=== PATIENT | female | born 2000 | race American Indian/Alaskan Native ===

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

== ENCOUNTER 2018-09-07 20:14 | Emergency (ER) | payer BC ==
[2018-09-07 20:28] VITALS: O2SAT 99
[2018-09-07] MEDS ORDERED: Sodium Chloride 0.9% 1,000 ML IV ONE (20:49)
[2018-09-07 20:55] LABS: BASO % 0.2 % (0.0-2.0); EOS % 0.3 % (0.0-4.0); HEMOGLOBIN 12.8 g/dL (11.0-16.0); MEAN CORPUSCULAR HEMOGLOBIN 28.6 pg (27.0-31.0); MEAN CORPUSCULAR HGB CONC 33.2 g/dL (33.0-37.0); MEAN PLATELET VOLUME 10.8 fL (7.2-11.7); MONO # 0.6 K/uL (0.0-0.8); MONO % 8.4 % (0.0-10.0); NEUT # 5.8 K/uL (1.8-7.0); NEUT % 78.1 % (50.0-75.0); RBC 4.48 Mil/uL (3.80-5.20); WHITE BLOOD COUNT 7.4 K/uL (4.8-10.8)
[2018-09-07 21:09] LABS: ALB/GLOB RATIO 1.5 (1.0-2.1); ALBUMIN 4.5 g/dL (3.5-5.0); ALT/SGPT 11 U/L (9-52); AST/SGOT 24 U/L (14-36); BLOOD UREA NITROGEN 13 mg/dL (7-17); CALCIUM 9.2 mg/dl (8.6-10.4); GFR NON-AFRICAN AMERICAN > 60
[2018-09-07 21:16] LABS: SQUAMOUS EPITHIAL 1 /hpf (0-5); URINE BACTERIA RARE (<OCC); URINE BILIRUBIN NEGATIVE (NEGATIVE); URINE BLOOD NEGATIVE (NEGATIVE); URINE CLARITY Clear (Clear); URINE COLOR Yellow (YELLOW); URINE GLUCOSE (UA) NORMAL (Normal); URINE LEUKOCYTE ESTERASE NEG Leu/uL (Negative); URINE PROTEIN NEGATIVE (NEGATIVE)
[2018-09-07] MEDS ORDERED: Iodixanol 320 MG/ML 100 ML BOTTLE IV ONE (21:30)
[2018-09-07 23:31] VITALS: BP 101/71; PULSE 88; RESP 16; TEMP 97.6
--- NOTE | 2018-09-08 04:40 | C.PDOC ---
History Of Present Illness 18-year-old female presents to the ED for evaluation of abdominal pain and watery, non-bloody diarrhea for two days. Patient reports having an episode of vomiting once earlier today, but has been able to tolerate liquid PO intake. Richar domínguez denies fever, chills. Time Seen by Provider: 09/07/18 20:33 Chief Complaint (Nursing): Abdominal Pain History Per: Patient History/Exam Limitations: no limitations Onset/Duration Of Symptoms: Days (2) Current Symptoms Are (Timing): Still Present Location Of Pain/Discomfort: Diffuse Quality Of Discomfort: "Pain" Associated Symptoms: Nausea, Vomiting, Diarrhea. denies: Fever, Chills Additional History Per: Patient Abnormal Vaginal Bleeding: No Past Medical History Reviewed: Historical Data, Nursing Documentation, Vital Signs Vital Signs: Last Vital Signs Temp 97.6 F 09/07/18 23:29 Pulse 88 09/07/18 23:29 Resp 16 09/07/18 23:29 BP 101/71 09/07/18 23:29 Pulse Ox 99 09/07/18 23:29 - Medical History PMH: Anemia Surgical History: No Surg Hx Family History: States: Unknown Family Hx - Social History Hx Alcohol Use: No Hx Substance Use: Yes Review Of Systems Constitutional: Negative for: Fever, Chills Gastrointestinal: Positive for: Nausea, Vomiting, Abdominal Pain, Diarrhea Physical Exam - Physical Exam Appears: Non-toxic, No Acute Distress Skin: Normal Color, Warm, Dry Head: Atraumatic, Normacephalic Eye(s): bilateral: Normal Inspection Oral Mucosa: Moist Neck: Supple Chest: Symmetrical, No Deformity, No Tenderness Cardiovascular: Rhythm Regular, No Murmur Respiratory: Normal Breath Sounds, No Rales, No Rhonchi, No Wheezing Gastrointestinal/Abdominal: Soft, Tenderness (mild, diffuse ), No Guarding, No Rebound Extremity: Normal ROM, Capillary Refill (less than 2 seconds ) Neurological/Psych: Oriented x3, Normal Speech, Normal Cognition ED Course And Treatment - Laboratory Results Result Diagrams: 09/07/18 20:46 09/07/18 20:46 Lab Results: Total Bilirubin 0.5 mg/dL (0.2-1.3) 09/07/18 20:46 AST 24 U/L (14-36) 09/07/18 20:46 ALT 11 U/L (9-52) 09/07/18 20:46 Alkaline Phosphatase 43 U/L (38-126) 09/07/18 20:46 Total Protein 7.4 g/dL (6.3-8.3) 09/07/18 20:46 Albumin 4.5 g/dL (3.5-5.0) 09/07/18 20:46 Globulin 2.9 gm/dL (2.2-3.9) 09/07/18 20:46 Albumin/Globulin Ratio 1.5 (1.0-2.1) 09/07/18 20:46 Urine Color Yellow (YELLOW) 09/07/18 20:46 Urine Clarity Clear (Clear) 09/07/18 20:46 Urine pH 5.0 (5.0-8.0) 09/07/18 20:46 Ur Specific Adin 1.027 (1.003-1.030) 09/07/18 20:46 Urine Protein Negative mg/dL (NEGATIVE) 09/07/18 20:46 Urine Glucose (UA) Normal mg/dL (Normal) 09/07/18 20:46 Urine Ketones Trace mg/dL (NEGATIVE) 09/07/18 20:46 Urine Blood Negative (NEGATIVE) 09/07/18 20:46 Urine Nitrate Negative (NEGATIVE) 09/07/18 20:46 Urine Bilirubin Negative (NEGATIVE) 09/07/18 20:46 Urine Urobilinogen 2.0 mg/dL (0.2-1.0) H 09/07/18 20:46 Ur Leukocyte Esterase Neg Mia/uL (Negative) 09/07/18 20:46 Urine WBC (Auto) 1 /hpf (0-5) 09/07/18 20:46 Urine RBC (Auto) < 1 /hpf (0-3) 09/07/18 20:46 Ur Squamous Epith Cells 1 /hpf (0-5) 09/07/18 20:46 Urine Bacteria Rare (<OCC) 09/07/18 20:46 O2 Sat by Pulse Oximetry: 99 (on RA ) Pulse Ox Interpretation: Normal - CT Scan/US CT A/P Other Rad Studies (CT/US): Read By Radiologist, Radiology Report Reviewed CT/US Interpretation: EXAM: CT Abdomen and Pelvis with IV contrast. CLINICAL HISTORY: RLQ tenderness. TECHNIQUE: Axial computed tomography images of the abdomen and pelvis with intravenous contrast. 0.00 mGy-cm. CONTRAST: With; VISI 320 100MLS. COMPARISON: None provided. FINDINGS: LUNG BASES: The lung bases appear clear. No pleural effusions are seen. LIVER: Unremarkable. GALLBLADDER AND BILE DUCTS: The gallbladder appears within normal limits. No radioopaque gallstones are seen. No biliary ductal dilatation is evident. PANCREAS: Unremarkable. SPLEEN: Unremarkable. ADRENAL GLANDS: Unremarkable. KIDNEYS, URETERS, AND BLADDER: The kidneys appear within normal limits. There is no hydronephrosis or hydroureter. No urinary calculi are seen. The urinary bladder appeared normal in size and configuration. STOMACH AND BOWEL: Unremarkable appearance of the stomach. No evidence of bowel obstruction. Mild mucosal wall thickening and fluid in the lumen are seen in the duodenum and throughout the small intestinal tract thought compatible with diffuse enteritis. Infectious or inflammatory etiologies are thought most likely. No evidence suggesting colitis. There is liquid stool identified in the ascending colon compatible with some diarrhea. APPENDIX: No evidence of acute appendicitis on CT examination. PERITONEUM: No free fluid. No free air. LYMPH NODES: No lymphadenopathy is evident. REPRODUCTIVE: Unremarkable as visualized. VASCULA TURE: No evidence of abdominal aortic aneurysm. BONES: No aggressive appearing osseous lesion. No acute osseous pathology evident. IMPRESSION: 1. Evidence of diffuse enteritis. 2. Liquid stool in the ascending colon compatible with diarrhea. Medical Decision Making Medical Decision Making: Progress: Bloodwork, urinalysis, and CT A/P ordered and reviewed. Zofran IVP and IV Fluids given. On reassessment, patient is resting comfortably, showing no signs of distress and reports an improvement in her symptoms. Patient is stable for discharge and is advised to f/u with her PMD within 1-2 days for further evaluation. Disposition - Disposition Referrals: [facility] [Outside] [facility] [Outside] Disposition: HOME/ ROUTINE Disposition Time: 23:30 Condition: IMPROVED Additional Instructions: ALFA CAMEJO, thank you for letting us take care of you today. The emergency medical care you received today was directed at your acute symptoms. If you were prescribed any medication, please fill it and take as directed. It may take several days for your symptoms to resolve. Return to the Emergency Department if your symptoms worsen, do not improve, or if you have any other problems. Please contact your doctor or call one of the physicians/clinics you have been referred to that are listed on the Patient Visit Information form that is included in your discharge packet. Bring any paperwork you were given at discharge with you along with any medications you are taking to your follow up visit. Our treatment cannot replace ongoing medical care by a primary care provider outside of the emergency department. Thank you for allowing the [facility] team to be part of your care today. Drink plenty of fluids to maintain your hydration. Follow up with our clinic or your primary care doctor this week for re- evaluation and further management. Prescriptions: Famotidine [Pepcid] 20 mg PO DAILY #10 tab Ondansetron ODT [Zofran ODT] 4 mg PO Q8 PRN #15 odt PRN Reason: Nausea/Vomiting Instructions: Diarrhea in Adolescents and Adults Forms: [facility] (Japanese), School Excuse, Work Excuse - Clinical Impression Clinical Impression: Enteritis - Scribe Statement The provider has reviewed the documentation as recorded by the Scribe (Chelsie Hill) Provider Attestation: All medical record entries made by the Scribe were at my direction and personall y dictated by me. I have reviewed the chart and agree that the record accurately reflects my personal performance of the history, physical exam, medical decision making, and the department course for this patient. I have also personally directed, reviewed, and agree with the discharge instructions and disposition.
--- NOTE | 2018-09-08 10:37 | CT ---
Date of service: 09/07/2018 PROCEDURE: CT Abdomen and Pelvis with contrast HISTORY: RLQ tenderness COMPARISON: None available. TECHNIQUE: Contrast dose: 100 mL Visipaque 320 IV Radiation dose: Total exam DLP = 315.39 mGy-cm. This CT exam was performed using one or more of the following dose reduction techniques: Automated exposure control, adjustment of the mA and/or kV according to patient size, and/or use of iterative reconstruction technique. FINDINGS: LOWER THORAX: No visible consolidation, pleural effusion, or pneumothorax. LIVER: 1.6 x 2.2 cm (series 3, image 52) hypodense region at the level of the falciform ligament bilaterally spanning both left and right lobe; possibility of focal fatty infiltration. GALLBLADDER AND BILE DUCTS: Unremarkable. PANCREAS: Unremarkable. SPLEEN: Unremarkable. ADRENALS: Unremarkable. KIDNEYS AND URETERS: The kidneys enhance symmetrically. No hydronephrosis or obstructing calculus identified. VASCULATURE: No aortic aneurysm. No atherosclerotic calcification or mural plaque present. BOWEL: Stomach is nondistended. Lack of oral contrast limits evaluation for bowel pathology. Bowel loops appear within normal limits of caliber without evidence of obstruction. Nondistended fluid-filled mildly thick-walled small bowel loops suspicious for enteritis. APPENDIX: The appendix is not definitively identified. No secondary signs of acute appendicitis. PERITONEUM: No significant free fluid. No definite free air. LYMPH NODES: No bulky adenopathy identified. BLADDER: Mildly thick-walled urinary bladder may be exaggerated by under distension. REPRODUCTIVE: Uterus is present. BONES: No acute osseous abnormality is detected. OTHER FINDINGS: None. IMPRESSION: Nondistended fluid-filled mildly thick-walled small bowel loops suspicious for enteritis. The appendix is not definitively identified. No secondary signs of acute appendicitis. Recommend clinical correlation including white blood cell count and physical exam. 1.6 x 2.2 cm hypodense region at the level of the falciform ligament bilaterally spanning both left and right lobe; possibility of focal fatty infiltration. Mildly thick-walled urinary bladder may be exaggerated by under distension. Preliminary impression was provided by [email or web address].
== END 2018-09-07 23:29 | disposition home or self-care (01) ==
LOC: C.ER 20:14
DX: K52.9 Noninfective gastroenteritis and colitis, unspecified (principal); D64.9 Anemia, unspecified
CPT/HCPCS: 74177; 80053; 81001; 81025; 85025; 96374; 99284; J2405; J7030; Q9967